=== PATIENT | male | born 1960 | race African-American/Black ===

== ENCOUNTER 2019-12-25 20:30 | Observation (INO) ==
[2019-12-25] MEDS ORDERED: ENOXAPARIN 40 MG/0.4 ML SYRINGE SUBCUT SCH (23:45)
[2019-12-25] MEDS ORDERED: hydrALAZINE 20 MG/1 ML VIAL IV PRN (23:54)
[2019-12-25] MEDS ORDERED: MORPHINE 4 MG/1 ML VIAL IV PRN (23:54)
[2019-12-25] MEDS ORDERED: DEXTROSE 50% 25 GM/50 ML VIAL IV PRN (23:54)
[2019-12-25] MEDS ORDERED: ONDANSETRON 4 MG/2 ML VIAL IV PRN (23:54)
[2019-12-25] MEDS ORDERED: ACETAMINOPHEN 325 MG TABLET PO PRN (23:54)
[2019-12-25] MEDS ORDERED: DOCUSATE SODIUM 100 MG CAPSULE PO PRN (23:54)
[2019-12-25] MEDS ORDERED: GLUCAGON 1 MG VIAL IM PRN (23:54)
[2019-12-26] MEDS ORDERED: ALBUTEROL 2.5 MG/3 ML NEB RESP TX PRN (00:02)
[2019-12-26] MEDS ORDERED: NITROGLYCERIN SL 0.4 MG TABLET SL PRN (00:40)
[2019-12-26] MEDS ORDERED: cefTRIAXone 1,000 MG in SYRINGE 1 EACH IV SCH (02:00)
[2019-12-26 03:17] LABS: Basophils % 0.6 % (0.0-0.8); Eosinophils # 0.1 10*3/uL (0.0-0.87); Eosinophils % 1.9 % (0.00-10.9); Hematocrit 31.8 VOL% (42.0-52.0); Hemoglobin 10.2 GM/DL (14.0-18.0); Immature Granulocytes % 0.3 %; Immature Granulocytes Absolute 0.02 #; Lymphocytes # 1.5 10*3/uL (1.4-4.0); Lymphocytes % 23.8 % (21.2-54.2); Mean Corpuscular HGB Conc 32.1 GM/DL (32-36); Mean Corpuscular Volume 82.2 FL (87-102); Mean Platelet Volume 10.5 FL (9.6-12.0); Monocytes % 6.3 % (1.7-12.7); Neutrophils % 67.1 % (38.7-73.9); Platelet Count 266 T/CUMM (130-400); Red Blood Count 3.87 MC/CUMM (3.8-5.5); Red Cell Distribution Width 14.6 % (9.3-17.3); White Blood Count 6.2 T/CUMM (4-12)
[2019-12-26 03:46] LABS: Albumin 3.1 G/DL (3.4-5.0); Bilirubin,Total 1.8 MG/DL (0.2-1.0); Osmolality,Calculated 281.7 MOS/KG (273-304); Risk Ratio 4.34; Thyroid Stimulating Hormone 0.686 uIU/ml (0.358-3.74); Total Protein 7.1 G/DL (6.4-8.3)
[2019-12-26 03:53] LABS: Troponin I 0.085 NG/ML (0.00-0.045)
[2019-12-26] MEDS: cefTRIAXone 1,000 MG in SYRINGE 1 EACH IV SCH (05:04)
[2019-12-26] MEDS: AZITHROMYCIN INJ 500 MG in SODIUM CHLORIDE 0.9% 250 ML IV SCH (05:09)
[2019-12-26] MEDS ORDERED: POTASSIUM CHLORIDE 20 MEQ TABLET PO ONE (07:53)
[2019-12-26] MEDS ORDERED: MAGNESIUM SULF RIDER 2 GM in PREMIX 1 EACH IV ONE (07:54)
[2019-12-26] MEDS: PANTOPRAZOLE 40 MG TABLET PO SCH (08:05)
[2019-12-26] MEDS: predniSONE 20 MG TABLET PO SCH (08:05)
[2019-12-26] MEDS: ASPIRIN EC 81 MG TABLET PO SCH (08:05)
[2019-12-26] MEDS: ALBUTEROL/IPRATROPIUM 3 ML NEB RESP TX SCH ×3 (08:06→18:53)
[2019-12-26] MEDS: INSULIN LISPRO 100 UNIT/ML SUBCUT SCH ×4 (08:20→20:04)
[2019-12-26] MEDS ORDERED: POTASSIUM CHLORIDE 20 MEQ/15 ML UDCUP PO ONE (13:36)
[2019-12-26] MEDS: METOPROLOL TARTRATE 25 MG TABLET PO SCH ×2 (13:37→20:48)
[2019-12-26] MEDS: FUROSEMIDE 20 MG/2 ML VIAL IV SCH (15:47)
[2019-12-26] MEDS ORDERED: ATORVASTATIN 80 MG TABLET PO SCH (21:00)
[2019-12-27] MEDS: ALBUTEROL/IPRATROPIUM 3 ML NEB RESP TX SCH ×3 (00:53→13:21)
[2019-12-27] MEDS: cefTRIAXone 1,000 MG in SYRINGE 1 EACH IV SCH (02:31)
[2019-12-27] MEDS: AZITHROMYCIN INJ 500 MG in SODIUM CHLORIDE 0.9% 250 ML IV SCH (02:32)
[2019-12-27 06:41] LABS: Basophils % 0.6 % (0.0-0.8); Eosinophils # 0.3 10*3/uL (0.0-0.87); Eosinophils % 4.2 % (0.00-10.9); Hematocrit 36.2 VOL% (42.0-52.0); Hemoglobin 11.3 GM/DL (14.0-18.0); Immature Granulocytes % 0.4 %; Immature Granulocytes Absolute 0.03 #; Lymphocytes # 2.4 10*3/uL (1.4-4.0); Lymphocytes % 35.2 % (21.2-54.2); Mean Corpuscular HGB Conc 31.2 GM/DL (32-36); Mean Corpuscular Volume 84.2 FL (87-102); Mean Platelet Volume 10.4 FL (9.6-12.0); Monocytes % 7.7 % (1.7-12.7); Neutrophils % 51.9 % (38.7-73.9); Platelet Count 305 T/CUMM (130-400); Red Cell Distribution Width 14.7 % (9.3-17.3); White Blood Count 6.7 T/CUMM (4-12)
[2019-12-27 06:54] LABS: Calcium 9.1 MG/DL (8.5-10.1); Osmolality,Calculated 278.5 MOS/KG (273-304)
[2019-12-27] MEDS: INSULIN LISPRO 100 UNIT/ML SUBCUT SCH ×2 (07:37→11:58)
[2019-12-27] MEDS: METOPROLOL TARTRATE 25 MG TABLET PO SCH (08:44)
[2019-12-27] MEDS: FUROSEMIDE 20 MG/2 ML VIAL IV SCH (08:44)
[2019-12-27] MEDS: ASPIRIN EC 81 MG TABLET PO SCH (08:44)
[2019-12-27] MEDS: PANTOPRAZOLE 40 MG TABLET PO SCH (08:44)
[2019-12-27] MEDS: predniSONE 20 MG TABLET PO SCH (08:44)
[2019-12-27] MEDS ORDERED: lisinopriL 20 MG TABLET PO SCH (09:00)
[2019-12-27 12:18] VITALS: BP 152/98
[2019-12-27] MEDS ORDERED: amLODIPine 5 MG TABLET PO SCH (13:00)
[2019-12-27] MEDS ORDERED: ENOXAPARIN 40 MG/0.4 ML SYRINGE SUBCUT SCH (18:00)
[2019-12-28] MEDS ORDERED: AZITHROMYCIN 250 MG TABLET PO SCH (09:00)
== END 2019-12-27 14:12 | disposition home or self-care (01) ==
LOC: N.5E
PROVIDERS: ADMIT Internal Medicine; ATTEND Internal Medicine

== ENCOUNTER 2021-03-16 05:07 | Observation (INO) ==
[2021-03-16] MEDS ORDERED: DOCUSATE SODIUM 100 MG CAPSULE PO PRN (08:02)
[2021-03-16] MEDS ORDERED: DEXTROSE 50% 25 GM/50 ML VIAL IV PRN (08:02)
[2021-03-16] MEDS ORDERED: hydrALAZINE 20 MG/1 ML VIAL IV PRN (08:02)
[2021-03-16] MEDS ORDERED: MORPHINE 4 MG/1 ML VIAL IV PRN (08:02)
[2021-03-16] MEDS ORDERED: ONDANSETRON 4 MG/2 ML VIAL IV PRN (08:02)
[2021-03-16] MEDS ORDERED: GLUCAGON 1 MG VIAL IM PRN (08:02)
[2021-03-16] MEDS ORDERED: ACETAMINOPHEN 325 MG TABLET PO PRN (08:02)
[2021-03-16] MEDS: ENOXAPARIN 40 MG/0.4 ML SYRINGE SUBCUT SCH (08:55)
[2021-03-16] MEDS: PANTOPRAZOLE 40 MG TABLET PO SCH (08:55)
[2021-03-16 08:59] LABS: Basophils % 0.6 % (0.0-0.8); Eosinophils # 0.4 10*3/uL (0.0-0.87); Eosinophils % 6.2 % (0.00-10.9); Hematocrit 39.3 VOL% (42.0-52.0); Hemoglobin 12.8 GM/DL (14.0-18.0); Immature Granulocytes % 0.2 %; Immature Granulocytes Absolute 0.01 #; Lymphocytes # 1.7 10*3/uL (1.4-4.0); Lymphocytes % 26.8 % (21.2-54.2); Mean Corpuscular HGB Conc 32.6 GM/DL (32-36); Mean Corpuscular Volume 85.6 FL (87-102); Mean Platelet Volume 10.2 FL (9.6-12.0); Monocytes % 6.5 % (1.7-12.7); Neutrophils % 59.7 % (38.7-73.9); Platelet Count 244 T/CUMM (130-400); Red Blood Count 4.59 MC/CUMM (3.8-5.5); Red Cell Distribution Width 14.6 % (9.3-17.3); White Blood Count 6.3 T/CUMM (4-12)
[2021-03-16 09:25] LABS: Albumin 3.7 G/DL (3.4-5.0); Calcium 9.9 MG/DL (8.5-10.1); Osmolality,Calculated 277.5 MOS/KG (273-304); Potassium 3.7 MMOL/L (3.5-5.1); Thyroid Stimulating Hormone 1.43 uIU/ml (0.358-3.74); Total Protein 7.8 G/DL (6.4-8.2)
[2021-03-16] MEDS: INSULIN LISPRO 100 UNIT/ML SUBCUT SCH ×3 (11:59→21:58)
[2021-03-16] MEDS ORDERED: NICOTINE 14 MG/24 HR PATCH TRANSDERM PRN (14:55)
[2021-03-16] MEDS ORDERED: POTASSIUM CHLORIDE 20 MEQ TABLET PO SCH (21:00)
[2021-03-16] MEDS ORDERED: ASPIRIN EC 81 MG TABLET PO SCH (21:00)
[2021-03-16] MEDS ORDERED: ROSUVASTATIN 20 MG TABLET PO SCH (21:00)
[2021-03-16] MEDS ORDERED: LOSARTAN/HCTZ 50-12.5 MG TABLET PO SCH (21:00)
[2021-03-16] MEDS: carvediloL 6.25 MG TABLET PO SCH (21:58)
[2021-03-17 05:57] LABS: Basophils # 0.1 10*3/uL (0.0-0.2); Basophils % 1.6 % (0.0-0.8); Eosinophils # 0.4 10*3/uL (0.0-0.87); Eosinophils % 9.7 % (0.00-10.9); Hematocrit 40.4 VOL% (42.0-52.0); Hemoglobin 13.1 GM/DL (14.0-18.0); Lymphocytes # 1.6 10*3/uL (1.4-4.0); Lymphocytes % 36.6 % (21.2-54.2); Mean Corpuscular HGB Conc 32.4 GM/DL (32-36); Mean Corpuscular Volume 86.1 FL (87-102); Mean Platelet Volume 10.4 FL (9.6-12.0); Monocytes % 8.7 % (1.7-12.7); Neutrophils % 43.4 % (38.7-73.9); Platelet Count 233 T/CUMM (130-400); Red Blood Count 4.69 MC/CUMM (3.8-5.5); Red Cell Distribution Width 14.4 % (9.3-17.3); White Blood Count 4.4 T/CUMM (4-12)
[2021-03-17 06:07] LABS: Calcium 9.1 MG/DL (8.5-10.1); Potassium 3.6 MMOL/L (3.5-5.1); Risk Ratio 4.18; VLDL CHOLESTEROL 16.2 MG/DL
[2021-03-17 06:46] LABS: Hypochromasia Slight; Microcytosis Slight; Platelet Estimate Adequate
[2021-03-17] MEDS: INSULIN LISPRO 100 UNIT/ML SUBCUT SCH ×2 (08:29→13:08)
[2021-03-17] MEDS ORDERED: FUROSEMIDE 40 MG/4 ML VIAL IV SCH (09:00)
[2021-03-17] MEDS: carvediloL 6.25 MG TABLET PO SCH (09:23)
[2021-03-17] MEDS: PANTOPRAZOLE 40 MG TABLET PO SCH (09:23)
[2021-03-17] MEDS: ENOXAPARIN 40 MG/0.4 ML SYRINGE SUBCUT SCH (09:24)
[2021-03-17 12:03] VITALS: BP 115/77
== END 2021-03-17 13:54 | disposition home or self-care (01) ==
LOC: N.TELEN → SUATTDRO 07:31
PROVIDERS: ADMIT Internal Medicine; ATTEND Internal Medicine